=== PATIENT | male | born 1950 | race Caucasian/White ===

== ENCOUNTER 2019-07-29 11:39 | Inpatient (IN) | payer MEDICARE, OTHER ==
[~2019-07-29] VITALS: Ht 187.9 cm; Wt 125.6 kg
[~2019-07-29 11:39] MED LIST: ACHD5005 PO; AMLO5TAB9 PO; ATOR10TA66 PO; FLUO20CA42 PO; GABA-488 PO; HYDR25TA4 PO; INSU100V16 SQ; INSU100V6 SQ; LEVO500T2 PO; LISI40TA PO; METF-397 PO; METO50TA7 PO; NAPR-915 PO
[2019-07-29] MEDS ORDERED: DIAZEPAM 5 MG (VALIUM) TABLET PO ONE (12:00)
[2019-07-29] MEDS ORDERED: NS IV 1000 ML 1,000 ML IV SCH ×2 (12:00→12:15)
[2019-07-29] MEDS ORDERED: MECLIZINE 25 MG (ANTIVERT) TAB PO ONE (12:00)
--- NOTE | 2019-07-29 12:08 | NUR ---
BP 87/68 DR NOTIFIED.
[2019-07-29 12:09] LABS: BASOPHILS # (AUTO) 0.1 10^3/uL (0.0-0.1); BASOPHILS % (AUTO) 1 % (0-10); EOSINOPHILS # (AUTO) 0.6 10^3/uL (0.0-0.3); EOSINOPHILS % (AUTO) 7 % (0-10); HEMATOCRIT 45 % (40-54); HEMOGLOBIN 14.3 G/DL (13.3-17.7); LYMPHOCYTES # (AUTO) 2.4 X 10^3 (1.0-4.0); LYMPHOCYTES % (AUTO) 25 % (12-44); MEAN CORPUSCULAR HEMOGLOBIN 29 PG (25-34); MEAN CORPUSCULAR HGB CONC 32 G/DL (32-36); MEAN CORPUSCULAR VOLUME 90 FL (80-99); MEAN PLATELET VOLUME 9.6 FL (7.4-10.4); MONOCYTES # (AUTO) 0.7 X 10^3 (0.0-1.0); MONOCYTES % (AUTO) 7 % (0-12); NEUTROPHILS # (AUTO) 5.9 X 10^3 (1.8-7.8); NEUTROPHILS % (AUTO) 60 % (42-75); PLATELET COUNT 243 10^3/uL (130-400); RED CELL DISTRIBUTION WIDTH 15.6 % (10.0-14.5); WHITE BLOOD COUNT 9.7 10^3/uL (4.3-11.0)
[2019-07-29 12:19] LABS: PROTHROMBIN TIME PATIENT 13.7 SEC (12.2-14.7)
--- NOTE | 2019-07-29 12:20 | NUR ---
BP 114/64
--- NOTE | 2019-07-29 12:24 | ED General ---
General Chief Complaint: Dizziness/Syncope Stated Complaint: ELEV HEART RATE; DIZZINESS Nursing Triage Note: ARRIVED VIA WC FROM REHAB. PT BECAME DIAPHORETIC AND DIZZY DURING REHAB FOR HIS SHOULDER. DENIES CHEST PAIN. REPORTS BLOOD SUGAR OF 106. Nursing Sepsis Screen: No Definite Risk History of Present Illness Date Seen by Provider: Jul 29, 2019 Time Seen by Provider: 11:57 Initial Comments Patient presenting to emergency department for evaluation of dizzy sensation that started while he was in physical therapy. He had shoulder replacement in February 2019 and has been getting physical therapy for his right shoulder. Patient says he was doing some lifting exercises while he was sitting down when the dizziness started. I asked him if it was a lightheaded sensation or spinning sensation he said that he has both. I asked which was more intense and he said the lightheaded sensation was more intense. Patient says that he has a history of hypertension high cholesterol and diabetes. His blood sugar was 106. Asked diffuse of her felt like this 40 said he has been it was when his blood sugar was low. He is denying any pain to me. He said that he had some nausea but no vomiting shortness of breath diaphoresis. He takes for blood pressure medications including Norvasc losartan metoprolol and hydrochlorothiazide. He is lying with his eyes closed as he says when his eyes are open he feels the dizziness more intensely. He is in no obvious distress with normal vital signs other than hypertension noted. Allergies and Home Medications Allergies Coded Allergies: Penicillins (Verified Allergy, Intermediate, DIZZINESS/FAINTED, 05/08/16) Home Medications Acetaminophen 500 Mg Tablet, 500 MG PO DAILY, (Reported) Acetaminophen 500 Mg Tablet, 1,000 MG PO HS, (Reported) Amlodipine Besylate 5 Mg Tablet, 5 MG PO DAILY, (Reported) Atorvastatin Calcium 10 Mg Tablet, 10 MG PO DAILY, (Reported) Fluoxetine HCl 20 Mg Capsule, 20 MG PO DAILY, (Reported) Gabapentin 300 Mg Capsule, 300 MG PO DAILY, (Reported) Gabapentin 600 Mg Tablet, 600 MG PO HS, (Reported) Hydrochlorothiazide 25 Mg Tablet, 25 MG PO DAILY, (Reported) Insulin Aspart 100 Unit/1 Ml Susp, 40 UNIT SQ WITH BREAKFAST, (Reported) Insulin Aspart 100 Unit/1 Ml Susp, 44 UNIT SQ WITH LUNCH, (Reported) Insulin Aspart 100 Unit/1 Ml Susp, 40 UNIT SQ WITH DINNER, (Reported) Insulin Degludec 100 Unit/1 Ml Vial, 60 UNIT SQ HS, (Reported) Losartan Potassium 100 Mg Tablet, 100 MG PO DAILY, (Reported) Metformin HCl 500 Mg Tablet, 500 MG PO BID, (Reported) Metoprolol Succinate 50 Mg Tab.er.24h, 50 MG PO DAILY, (Reported) Semaglutide 1 Mg/0.75 Ml Pen.injctr, 1 MG SQ WEEK, (Reported) Patient Home Medication List Home Medication List Reviewed: Yes Review of Systems Review of Systems Constitutional: dizziness EENTM: no symptoms reported Respiratory: no symptoms reported Cardiovascular: no symptoms reported Gastrointestinal: nausea Genitourinary: no symptoms reported Musculoskeletal: no symptoms reported Skin: no symptoms reported Psychiatric/Neurological: No Symptoms Reported All Other Systems Reviewed Negative Unless Noted: Yes Past Zjcfrle-Djtfza-Rvpbhd Hx Patient Social History Alcohol Use: Denies Use Recreational Drug Use: No Smoking Status: Never a Smoker Recent Foreign Travel: No Contact w/Someone Who Travel: No Recent Infectious Disease Expo: No Recent Hopitalizations: No Immunizations Up To Date Date of Influenza Vaccine: Mar 07, 2016 Seasonal Allergies Seasonal Allergies: No Past Medical History Surgeries: Yes Orthopedic Respiratory: Yes Sleep Apnea Currently Using CPAP: Yes Cardiac: Yes High Cholesterol, Hypertension Neurological: Yes Headaches /Migraines Reproductive Disorders: No Sexually Transmitted Disease: No HIV/AIDS: No Kidney Stones Gastrointestinal: Yes (TAKES ROLAIDS) Gastroesophageal Reflux Musculoskeletal: Yes Arthritis Endocrine: Yes Diabetes, Insulin dep Loss of Vision: Bilateral Hearing Impairment: Denies Cancer: No Psychosocial: Yes (LOST 5MONTHS AGO) Depression Integumentary: No Blood Disorders: No Adverse Reaction/Blood Tranf: No (N/A) Physical Exam Vital Signs Vital Signs - First Documented 07/29/19 11:39 Temp 35.4 Pulse 81 Resp 16 B/P (MAP) 106/64 (78) Pulse Ox 95 O2 Delivery Room Air Capillary Refill : Less Than 3 Seconds Height, Weight, BMI Height: 6'2.00" Weight: 284lbs. 8.0oz. 129.209211bl; 36.00 BMI Method: General Appearance: No Apparent Distress, WD/WN HEENT: PERRL/EOMI, Other (nystagmus on leftward gaze that is fatigable ) Neck: Non Tender, Supple Respiratory: Lungs Clear, No Respiratory Distress Cardiovascular: Regular Rate, Rhythm Gastrointestinal: Non Tender, Soft Back: Normal Inspection Extremity: Normal Capillary Refill Neurologic/Psychiatric: Alert, Oriented x3, No Motor/Sensory Deficits, Normal Mood/Affect, director of critical care II-XII Norm as Tested Skin: Warm/Dry Progress/Results/Core Measures Suspected Sepsis Recent Fever Within 48 Hours: No Infection Criteria Present: None New/Unexplained Altered Menta: No Sepsis Screen: No Definite Risk SIRS Temperature: Pulse: 81 Respiratory Rate: 16 Laboratory Tests 07/29/19 11:45: White Blood Count 9.7 Blood Pressure 106 /64 Mean: 78 Laboratory Tests 07/29/19 11:45: Creatinine 1.43H, INR Comment 1.0, Platelet Count 243, Total Bilirubin 0.5 Results/Orders Lab Results Laboratory Tests Test 07/29/19 11:45 07/29/19 13:39 07/29/19 14:21 07/29/19 14:54 Range/Units White Blood Count 9.7 4.3-11.0 10^3/uL Red Blood Count 4.94 4.35-5.85 10^6/uL Hemoglobin 14.3 13.3-17.7 G/DL Hematocrit 45 40-54 % Mean Corpuscular Volume 90 80-99 FL Mean Corpuscular Hemoglobin 29 25-34 PG Mean Corpuscular Hemoglobin Concent 32 32-36 G/DL Red Cell Distribution Width 15.6 H 10.0-14.5 % Platelet Count 243 130-400 10^3/uL Mean Platelet Volume 9.6 7.4-10.4 FL Neutrophils (%) (Auto) 60 42-75 % Lymphocytes (%) (Auto) 25 12-44 % Monocytes (%) (Auto) 7 0-12 % Eosinophils (%) (Auto) 7 0-10 % Basophils (%) (Auto) 1 0-10 % Neutrophils # (Auto) 5.9 1.8-7.8 X 10^3 Lymphocytes # (Auto) 2.4 1.0-4.0 X 10^3 Monocytes # (Auto) 0.7 0.0-1.0 X 10^3 Eosinophils # (Auto) 0.6 H 0.0-0.3 10^3/uL Basophils # (Auto) 0.1 0.0-0.1 10^3/uL Prothrombin Time 13.7 12.2-14.7 SEC INR Comment 1.0 0.8-1.4 Activated Partial Thromboplast Time 22 L 24-35 SEC Sodium Level 138 135-145 MMOL/L Potassium Level 3.6 3.6-5.0 MMOL/L Chloride Level 97 L 98-107 MMOL/L Carbon Dioxide Level 21 21-32 MMOL/L Anion Gap 20 H 5-14 MMOL/L Blood Urea Nitrogen 22 H 7-18 MG/DL Creatinine 1.43 H 0.60-1.30 MG/DL Estimat Glomerular Filtration Rate 49 BUN/Creatinine Ratio 15 Glucose Level 101 70-105 MG/DL Calcium Level 9.1 8.5-10.1 MG/DL Corrected Calcium 9.0 8.5-10.1 MG/DL Magnesium Level 1.7 1.6-2.4 MG/DL Total Bilirubin 0.5 0.1-1.0 MG/DL Aspartate Amino Transf (AST/SGOT) 21 5-34 U/L Alanine Aminotransferase (ALT/SGPT) 26 0-55 U/L Alkaline Phosphatase 105 40-136 U/L Troponin I < 0.30 <0.30 NG/ML Pro-B-Type Natriuretic Peptide 99.9 H <75.0 PG/ML Total Protein 7.8 6.4-8.2 GM/DL Albumin 4.1 3.2-4.5 GM/DL Glucometer 35 *L 85 93 70-110 MG/DL My Orders Orders - TORI BEAR DO Cbc With Automated Diff (07/29/19 11:54) Comprehensive Metabolic Panel (07/29/19 11:54) Magnesium (07/29/19 11:54) Partial Thromboplastin Time (07/29/19 11:54) Probnp Fs (07/29/19 11:54) Protime With Inr (07/29/19 11:54) Troponin I Fs (07/29/19 11:54) Ct Angio Head/Neck (07/29/19 11:54) Ns Iv 1000 Ml (Sodium Chloride 0.9%) (07/29/19 12:00) Diazepam Tablet (Valium Tablet) (07/29/19 12:00) Meclizine Tablet (Antivert Tablet) (07/29/19 12:00) Ns Iv 1000 Ml (Sodium Chloride 0.9%) (07/29/19 12:15) Iohexol Injection (Omnipaque 350 Mg/Ml 1 (07/29/19 13:15) Received Contrast (Hold Metformin- Contr (07/29/19 13:15) Sodium Chloride Flush (Catheter Flush Sy (07/29/19 13:15) Ns (Ivpb) (Sodium Chloride 0.9% Ivpb Bag (07/29/19 13:15) Lactated Ringers (Lr 1000 Ml Iv Solution (07/29/19 13:45) D50w (Emergency) Syringe (Dextrose 50% 5 (07/29/19 13:45) D50w (Emergency) Syringe (Dextrose 50% 5 (07/29/19 13:36) Aspirin Chewable Tablet (Baby Aspirin Ch (07/29/19 14:45) Ekg Tracing (07/29/19 14:47) Medications Given in ED Current Medications Medications Dose Ordered Sig/Axel Route Start Time Stop Time Status Last Admin Dose Admin Aspirin 324 mg ONCE ONCE PO 07/29/19 14:45 07/29/19 14:46 DC 07/29/19 14:58 324 MG Dextrose 50 ml ONCE ONCE IV 07/29/19 13:45 07/29/19 13:46 DC 07/29/19 13:43 50 ML Diazepam 5 mg ONCE ONCE PO 07/29/19 12:00 07/29/19 12:01 DC 07/29/19 12:02 5 MG Iohexol 100 ml ONCE ONCE IV 07/29/19 13:15 07/29/19 13:16 DC 07/29/19 13:34 75 ML Meclizine HCl 25 mg ONCE ONCE PO 07/29/19 12:00 07/29/19 12:01 DC 07/29/19 12:02 25 MG Sodium Chloride 10 ml NEEDED PRN IV 07/29/19 13:15 07/29/19 13:35 10 ML Sodium Chloride 100 ml ONCE ONCE IV 07/29/19 13:15 07/29/19 13:16 DC 07/29/19 13:35 80 ML Vital Signs/I&O 07/29/19 11:39 Temp 35.4 Pulse 81 Resp 16 B/P (MAP) 106/64 (78) Pulse Ox 95 O2 Delivery Room Air Capillary Refill : Less Than 3 Seconds Blood Pressure Mean: 78 Progress Note : Progress Note Patient's symptoms are somewhat difficult to discern as he has both lightheaded and spinning sensation with nystagmus noted on exam as well as being hypotensive. I suspect this is more of a lightheaded sensation from the dizziness anything else. I will go ahead and treat with IV fluids meclizine and Valium observe and reassess. His EKG shows a right bundle branch block which she says is not new for him as he has had this for some time. No signs of ischemia on the EKG. He will get further blood work and imaging studies as well. Patient unfortunately did not improve during his emergency department stay despite 3 L of IV fluids meclizine and Valium and having an amp of D50 and eating a sandwich and having orange juice. He continued to have dizziness and lightheaded sensation. Repeat neurologic exam was normal with intact finger to nose and heel to [place]. His CT angiography did not show any high-grade occlusion however given his intractable symptoms she likely does warrant MRI. Patient will be transferred to [facility] in stable condition. Patient accepted by Dr. Bates. Departure Impression Primary Impression: Dizziness Additional Impressions: Vertigo Hypotension Renal insufficiency Hypoglycemia Disposition: ADMITTED INPATIENT Condition: Stable Transfer Transfer Reason: Exceeds level of care Transfer [facility] Method of Transfer: EMS Departure-Patient Inst. Referrals: ALBA MUÑOZ MD (PCP/Family) Primary Care Physician TORI BEAR DO Jul 29, 2019 11:57
[2019-07-29] MEDS ORDERED: GBPN600T PO (12:25)
[2019-07-29] MEDS ORDERED: LOSA100T57 PO (12:29)
[2019-07-29] MEDS ORDERED: ACET-93 PO ×2 (12:29→12:30)
[2019-07-29] MEDS ORDERED: INSU100V37 SQ (12:31)
[2019-07-29] MEDS ORDERED: SEMA1PEN SQ (12:31)
[2019-07-29 12:37] LABS: ALANINE AMINOTRANSFERASE 26 U/L (0-55); ALBUMIN 4.1 GM/DL (3.2-4.5); ALKALINE PHOSPHATASE 105 U/L (40-136); BILIRUBIN,TOTAL 0.5 MG/DL (0.1-1.0); BUN/CREATININE RATIO 15; CALCIUM 9.1 MG/DL (8.5-10.1); CARBON DIOXIDE 21 MMOL/L (21-32); CHLORIDE 97 MMOL/L (98-107); CREATININE SERUM 1.43 MG/DL (0.60-1.30); GFR ESTIMATED 49; GLUCOSE 101 MG/DL (70-105); MAGNESIUM 1.7 MG/DL (1.6-2.4); POTASSIUM 3.6 MMOL/L (3.6-5.0); SODIUM 138 MMOL/L (135-145); TOTAL PROTEIN 7.8 GM/DL (6.4-8.2)
--- NOTE | 2019-07-29 13:13 | NUR ---
PT CONTINUES TO COMPLAIN OF DIZZINESS. NOTIFIED.
[2019-07-29] MEDS ORDERED: IOHEXOL 350 MG/ML 100 ML (OMNIPAQUE 350) VIAL IV ONE (13:15)
[2019-07-29] MEDS ORDERED: HOLD METFORMIN - RECEIVED CONTRAST 20 ML VIAL IV SCH (13:15)
[2019-07-29] MEDS ORDERED: NS 100 ML (IVPB) BAG IV ONE (13:15)
[2019-07-29] MEDS ORDERED: CATHETER FLUSH 10 ML SYR IV PRN ×2 (13:15→17:00)
[2019-07-29] MEDS ORDERED: DEXTROSE 50% 50 ML (IMS) SYR ONE (13:36)
--- NOTE | 2019-07-29 13:40 | NUR ---
CALLED OVER TO CT TO CHECK ON PT. TECH STATES HE IS NOT ABLE TO GET UP AND GET INTO THE BED. UPON MY ARRIVAL PT ABLE TO ANSWER QUESTIONS SLOWLY ET STATES HE DOES NOT FEE RIGHT.
[2019-07-29] MEDS ORDERED: LACTATED RINGERS 1,000 ML IV SCH (13:45)
[2019-07-29] MEDS ORDERED: DEXTROSE 50% 50 ML (IMS) SYR IV ONE (13:45)
--- NOTE | 2019-07-29 13:50 | NUR ---
PT TRANSFERRED TO ER COT WITH HELP. TAKEN BACK TO THE ER. MORE ALERT. SANDWICH AND OJ GIVEN. VSS.
[2019-07-29] MEDS ORDERED: ASPIRIN 81 MG CHEW (CHILDREN'S ASA) PO ONE (14:45)
--- NOTE | 2019-07-29 14:47 | Diagnostic Imaging Report ---
PROCEDURE: CT angiography of the head and CT angiography of the neck with and without contrast. TECHNIQUE: Contiguous noncontrast images were obtained from the skull base through the vertex. After intravenous contrast administration, helical CT angiography of the neck was performed. Source data was reformatted into 3D MIP projections. Delayed post contrast acquisition was also obtained. Auto Exposure Controls were utilized during the CT exam to meet ALARA standards for radiation dose reduction. INDICATION: CVA. COMPARISON: There are no prior studies available for comparison. FINDINGS: The pre-intravenous contrast images through the skull failed to show any sign of a mass, shift of midline or hemorrhage to indicate an acute abnormality. The ventricles are not abnormally dilated. There is a 5.8 x 11.7 mm calcification along the posterior aspect of the left parietal lobe. This is of uncertain etiology but could be a sequela of prior inflammatory/infectious process or an area of hemorrhage. The bone windows show no sign of a fracture or of a destructive lesion. The orbits and sinuses are within normal limits. The postcontrast images of the head and neck are of limited diagnostic value as the vessels are poorly opacified. There is no large vessel occlusion seen and there is no evidence for an aneurysm of the [place]. The A1 segment on the right is atretic. This is a developmental variant. The images through the neck are less than optimal as the carotid and vertebral systems are barely opacified. There is no obvious abnormality evident. There is no mass or adenopathy involving the neck. The thyroid gland is prominent. The lung apices are clear. The bone windows show fairly severe degenerative disc and bone disease at C4-C5, C5-C6 and C6-C7. There is no acute bony abnormality noted. IMPRESSION: 1. This exam is of limited diagnostic value as the intracranial arterial circulation and the carotid and vertebral systems are poorly opacified. There is no evidence for a large vessel occlusion or for an aneurysm of the [place]. 2. There is no obvious abnormality of the carotid or vertebral systems. 3. If clinical concern regarding an acute intracranial abnormality persists, then MRI would be recommended for further study. 4. These results were discussed with Dr. England at the time of exam. Dictated by: Dictated on workstation # [id number]
--- NOTE | 2019-07-29 16:11 | NUR ---
CALIN MORALES admitted to room 411-1, with an admitting diagnosis of HYPOTENSION, DIZZINESS, AND DIABETES, on 07/29/19 from [facility] ED via [facility], accompanied by EMS. CALIN MORALES introduced to surroundings, call light, bed controls, phone, TV, temperature control, lights, meal times, smoking policy, visitor policy, side rail policy, bathrooms and showers. Patient Rights given to patient in the handbook. CALIN MORALES verbalizes understanding that [facility] is not responsible for the loss or damage to any personal effects or valuables that are kept in the patients posession during their hospitalization. The following Patient Care Plans were discussed with the PT: Discharge Planning, FALLS, PAIN, AND DIABETES. CALIN MORALES verbalizes understanding of Interdisciplinary Patient Education. Patient and/or family were informed about the Rapid Response Team and its purpose.
[2019-07-29 16:34] VITALS: BP 135/92
--- NOTE | 2019-07-29 17:13 | NUR ---
DR. BERNAL NOTIFIED THAT MRI CANNOT BE DONE UNTIL TOMORROW. ORDERS REC'D.
[2019-07-29] MEDS: LACTATED RINGERS 1,000 ML IV SCH (18:08)
[2019-07-29 19:23] VITALS: BP 139/70
--- NOTE | 2019-07-29 22:47 | NUR ---
2129 dr flynn made aware of accu hx.. order recieved to chnage accu to [facility] with ss a that will start in the am. pt states he feels much better.. iv in the lac leaking fluids transfered to the rac iv
[2019-07-29] MEDS ORDERED: ACETAMINOPHEN 500 MG TAB (TYLENOL) ONE (23:53)
[2019-07-30] VITALS: BP 160/92
[2019-07-30] MEDS ORDERED: ACETAMINOPHEN 500 MG TAB (TYLENOL) PO PRN
[2019-07-30] MEDS: LACTATED RINGERS 1,000 ML IV SCH (03:11)
[2019-07-30 04:00] VITALS: BP 155/87
[2019-07-30 06:06] LABS: BASOPHILS % (AUTO) 0 % (0-10); EOSINOPHILS # (AUTO) 0.6 10^3/uL (0.0-0.3); EOSINOPHILS % (AUTO) 7 % (0-10); HEMATOCRIT 39 % (40-54); HEMOGLOBIN 12.6 G/DL (13.3-17.7); LYMPHOCYTES # (AUTO) 1.5 X 10^3 (1.0-4.0); LYMPHOCYTES % (AUTO) 18 % (12-44); MEAN CORPUSCULAR HEMOGLOBIN 29 PG (25-34); MEAN CORPUSCULAR HGB CONC 33 G/DL (32-36); MEAN CORPUSCULAR VOLUME 89 FL (80-99); MEAN PLATELET VOLUME 9.5 FL (7.4-10.4); MONOCYTES # (AUTO) 0.7 X 10^3 (0.0-1.0); MONOCYTES % (AUTO) 9 % (0-12); NEUTROPHILS # (AUTO) 5.3 X 10^3 (1.8-7.8); NEUTROPHILS % (AUTO) 66 % (42-75); PLATELET COUNT 192 10^3/uL (130-400); RED CELL DISTRIBUTION WIDTH 16.1 % (10.0-14.5)
[2019-07-30 06:41] LABS: ALANINE AMINOTRANSFERASE 23 U/L (0-55); ALBUMIN 3.3 GM/DL (3.2-4.5); ALKALINE PHOSPHATASE 82 U/L (40-136); BILIRUBIN,TOTAL 0.3 MG/DL (0.1-1.0); BUN/CREATININE RATIO 15; CALCIUM 8.9 MG/DL (8.5-10.1); CARBON DIOXIDE 27 MMOL/L (21-32); CHLORIDE 104 MMOL/L (98-107); CREATININE SERUM 1.08 MG/DL (0.60-1.30); GFR ESTIMATED > 60; GLUCOSE 141 MG/DL (70-105); POTASSIUM 3.9 MMOL/L (3.6-5.0); SODIUM 140 MMOL/L (135-145); TOTAL PROTEIN 6.2 GM/DL (6.4-8.2)
[2019-07-30] MEDS: inSUlin ASPART (NovoLOG) 1 UNIT/0.01 ML (CHARGE PER UNIT) SC SCH ×2 (06:45→11:50)
[2019-07-30 08:14] VITALS: BP 153/77
[2019-07-30] MEDS ORDERED: INSU200I4 SC (10:36)
[2019-07-30] MEDS ORDERED: INSU100I14 SC (10:36)
--- NOTE | 2019-07-30 10:36 | NUR ---
SPOKE WITH THE PT (HE HAD A MED LIST ON HIS CHART) AND WENT THRU THE EXT MED HISTORY TO COMPLETE THE MED REC. ALL MEDICATIONS ON THE EXT MED HISTORY MATCHED HOW THE PT SAYS HE TAKES THEM. GABAPENTIN 300MG: PT TAKES 1 AM AND 2 HS- THE MOST RECENT FILL AT [facility] #30/30DS- I ASKED THE PT ABOUT THIS & PT INDICATED HE DID NOT TAKE THAT FROM THE PHARMACY BC IT WAS THE INCORRECT QTY AND DIRECTIONS. OTC MEDS: TYLENOL
--- NOTE | 2019-07-30 12:59 | Diagnostic Imaging Report ---
PROCEDURE: MR imaging of the brain without contrast. TECHNIQUE: Multiplanar, multisequence MR imaging of the brain was performed without contrast. INDICATION: Dizziness. Evaluate for stroke. COMPARISON: Comparison is made with a prior CT angiogram performed at [facility] on July 29, 2019. FINDINGS: The diffusion series demonstrates no restriction. There are no findings of acute or subacute ischemia. There is mild age-appropriate global volume loss. There are some minimal subcortical T2 signal changes compatible with minimal microvascular disease. Kwon and white matter signal characteristics are otherwise normal. There is no mass effect or shift. There is no hydrocephalus. There is no hemorrhage. There is no abnormal extra-axial fluid collection. The posterior fossa appears unremarkable. There are no findings of a cerebellopontine angle mass. There is no signal abnormality evident within the susie. The pituitary gland and pineal region are unremarkable. There is normal alignment of the craniocervical junction. The mastoid air cells are clear. There is minimal mucosal thickening within the ethmoid and maxillary sinuses. There are prior surgical changes of cataract surgery. The major expected vascular flow voids appear maintained. IMPRESSION: 1. No MR evidence of an acute intracranial abnormality. Specifically, there are no findings of acute ischemia. 2. Age-appropriate global volume loss with minimal microvascular changes in the subcortical white matter. 3. No findings of hemorrhage, mass effect or hydrocephalus. Dictated by: Dictated on workstation # [id number]
[2019-07-30 13:00] VITALS: BP 171/89
--- NOTE | 2019-07-30 14:10 | Short Stay Summary ---
Discharge Summary Hospital Course Final Diagnosis: Vertigo Hospital Course Date of Admission: Jul 29, 2019 at 15:07 Admission Diagnosis : Family Physician/Provider: Kris Warren MD Date of Discharge: 07/30/19 Discharge Diagnosis: Vertigo- CTA head done and was limited but no obvious occlusions, MRI with age related change and no other abnormalities. Hypotension- resolved with IVF, BP was elevated at time of d/c (160s) so home meds were restarted Hypoglycemia- blood sugar 35 in ER in spite of reported eating and drinking normally and no recent illness. Blood sugar remained in 100s even with quite a bit of food intake, held insulin on discharge with plan to resume when blood sugar increasing. Hospital Course: See discharge diagnosis Labs and Pending Lab Test: Laboratory Tests 07/29/19 14:21: Glucometer 85 07/29/19 14:54: Glucometer 93 07/29/19 16:21: Glucometer 107 07/29/19 17:13: Glucometer 116H 07/29/19 18:10: Glucometer 202H 07/29/19 19:13: Glucometer 196H 07/29/19 20:14: Glucometer 215H 07/29/19 21:14: Glucometer 179H 07/29/19 23:12: Glucometer 145H 07/30/19 05:14: White Blood Count 8.0, Red Blood Count 4.36, Hemoglobin 12.6L, Hematocrit 39L, Mean Corpuscular Volume 89, Mean Corpuscular Hemoglobin 29, Mean Corpuscular Hemoglobin Concent 33, Red Cell Distribution Width 16.1H, Platelet Count 192, Mean Platelet Volume 9.5, Neutrophils (%) (Auto) 66, Lymphocytes (%) (Auto) 18, Monocytes (%) (Auto) 9, Eosinophils (%) (Auto) 7, Basophils (%) (Auto) 0, Neutrophils # (Auto) 5.3, Lymphocytes # (Auto) 1.5, Monocytes # (Auto) 0.7, Eosinophils # (Auto) 0.6H, Basophils # (Auto) 0.0, Sodium Level 140, Potassium Level 3.9, Chloride Level 104, Carbon Dioxide Level 27, Anion Gap 9, Blood Urea Nitrogen 16, Creatinine 1.08, Estimat Glomerular Filtration Rate > 60, BUN/Creatinine Ratio 15, Glucose Level 141H, Calcium Level 8.9, Corrected Calcium 9.5, Total Bilirubin 0.3, Aspartate Amino Transf (AST/SGOT) 18, Alanine Aminotransferase (ALT/SGPT) 23, Alkaline Phosphatase 82, Total Protein 6.2L, Albumin 3.3 07/30/19 06:38: Glucometer 109 07/30/19 11:18: Glucometer 158H Home Meds Active Reported Tresiba Flextouch U-200 (Insulin Degludec) 200 Unit/1 Ml Insuln.pen 60 Units SC HS Novolog Flexpen (Insulin Aspart) 300 Units/3 Ml Solution 40 Units SC TIDAC Ozempic (Semaglutide) 1 Mg/0.75 Ml Pen.injctr 1 Mg SQ MON INJECTS ONCE WEEKLY ON MONDAYS Acetaminophen 500 Mg Tablet 1,000 Mg PO HS Acetaminophen 500 Mg Tablet 500 Mg PO DAILY Losartan Potassium 100 Mg Tablet 100 Mg PO DAILY Gabapentin 600 Mg Tablet 600 Mg PO HS Metformin HCl 500 Mg Tablet 500 Mg PO BID Hydrochlorothiazide 25 Mg Tablet 25 Mg PO DAILY Gabapentin 300 Mg Capsule 300 Mg PO DAILY Amlodipine Besylate 5 Mg Tablet 5 Mg PO DAILY Prozac (Fluoxetine HCl) 20 Mg Capsule 20 Mg PO DAILY Metoprolol Succinate 50 Mg Tab.er.24h 50 Mg PO DAILY Atorvastatin Calcium 10 Mg Tablet 10 Mg PO DAILY Assessment/Pt Instructions Follow up with Dr. Warren on 08/05 at 1:20 pm. Check blood sugar fasting and 2 hours after each meal, if fasting is cons istently above 160 resume Tresiba, if 2 hours after meals is consistently above 180 resume novolog, otherwise follow up with Dr. Warren for further instructions on insulin. Discharge Instructions Discharge Diet: ADA Diet Activity as Tolerated: Yes Discharge Physical Examination General Appearance: Alert, No Acute Distress HEENT: PERRLA, EOMI Respiratory: Clear to Auscultation, Normal Air Movement Cardiovascular: Regular Rate, No Murmurs Abdominal: Normal Bowel Sounds, Soft, No Tenderness Extremities: No Edema Neuro: Strength at 5/5 X4 Ext, Cranial Nerves 3-12 NL Psych/Mental Status: Mental Status NL Allergies: Coded Allergies: Penicillins (Verified Allergy, Intermediate, DIZZINESS/FAINTED, 07/29/19) Copy Copies To 1: Kris Warren MD Discharge Summary Date of Admission Jul 29, 2019 at 15:07 Date of Discharge Discharge Date: Jul 30, 2019 Clinical Quality Measures DVT/VTE Risk/Contraindication: Risk Factor Score Per Nursin RFS Level Per Nursing on Admit: 3=High SCOTTY BERNAL MD Jul 30, 2019 14:10
--- NOTE | 2019-07-30 14:45 | NUR ---
RX AND INST REVIEWED AND VERBALIZED UNDERSTANDING. AWAITING RIDE FOR DC. INSTRUCTED TO CALL SCHOOL ADMISSIONS REPRESENTATIVE IN AM FOR F/U.
== END 2019-07-30 15:51 | disposition home or self-care (01) | DRG 316 ==
LOC: EDUNIT# 11:39 → ER FS 11:40 → 4TH 15:07
PROVIDERS: ADMIT Family Medicine; ATTEND Family Medicine
DX: I95.9 Hypotension, unspecified (principal); E11.649 Type 2 diabetes mellitus with hypoglycemia without coma; R42 Dizziness and giddiness; I10 Essential (primary) hypertension; E78.00 Pure hypercholesterolemia, unspecified; G47.30 Sleep apnea, unspecified; G43.909 Migraine, unspecified, not intractable, without status migrainosus; K21.9 Gastro-esophageal reflux disease without esophagitis; M19.90 Unspecified osteoarthritis, unspecified site; H54.3 Unqualified visual loss, both eyes; F32.9 Major depressive disorder, single episode, unspecified; Z79.4 Long term (current) use of insulin; Z87.442 Personal history of urinary calculi
CPT/HCPCS: 36415; 70496; 70498; 70551; 80053; 82962; 83735; 83880; 84484; 85025; 85610; 85730; 93005; G0378

== ENCOUNTER → 2021-12-27 | Outpatient (CLI) | payer MEDICARE, OTHER ==
[~2021-12-27] MED LIST changes: +ACET-93 PO; +AMLO-250 PO; -AMLO5TAB9 PO; +GBPN600T PO; +INSU100I14 SC; +INSU100V37 SQ; +INSU200I4 SC; -LISI40TA PO; +LISI40TA9 PO; +LOSA100T57 PO; +SEMA1PEN SQ
--- NOTE | 2021-12-27 14:56 | Diagnostic Imaging Report ---
PROCEDURE: MR imaging of the brain without contrast. TECHNIQUE: Multiplanar, multisequence MR imaging of the brain was performed without contrast. INDICATION: Dizzy spells COMPARISON: 07/30/2019 FINDINGS: The ventricles and cortical sulci are slightly prominent, compatible with age related volume loss. There is no acute infarction. There is no midline shift or mass effect identified. No intraparenchymal or extraaxial hemorrhage or fluid collection is identified. There is no other focal parenchymal abnormality seen. The midline craniocervical anatomy is unremarkable. The major expected intracranial flow voids are seen. There are no focal calvarial lesions. The visualized paranasal sinuses are unremarkable. The mastoid air cells are clear. IMPRESSION: 1. No acute intracranial abnormalities. No acute infarction, acute intra-axial hemorrhage, or focal intra-axial mass. 2. Chronic small vessel ischemic changes in the periventricular and subcortical white matter. Dictated by: Dictated on workstation # [id number]
== END ==
LOC: RAD 13:15
PROVIDERS: ATTEND Family Medicine
DX: I67.82 Cerebral ischemia (principal)
CPT/HCPCS: 70551